=== PATIENT | male | born 1940 | race Caucasian/White ===

== ENCOUNTER 2023-08-18 06:26 | Inpatient (IN) | payer MEDICARE ==
[~2023-08-18] VITALS: Ht 182.9 cm; Wt 107.4 kg
[2023-08-18] MEDS ORDERED: ATOR20TA PO (06:57)
[2023-08-18] MEDS ORDERED: LOSA-420 PO (06:58)
[2023-08-18 07:28] LABS: BILIRUBIN,URINE NEGATIVE (Neg); CLARITY,URINE CLEAR (Clear); COLOR,URINE YELLOW (Yellow); GLUCOSE, URINE >=1000 mg/dl (Neg); KETONES,URINE 40 mg/dl (Neg); LEUKOCYTE ESTERASE ,URINE NEGATIVE (Neg); NITRITES, URINE NEGATIVE (Neg); OCCULT BLOOD,URINE TRACE-INTACT (Neg); PH,URINE 5.5 (4.8-8.0); PROTEIN,URINE NEGATIVE (Neg); UROBILINOGEN,URINE 0.2 E.U/dL (0.2-1.0)
[2023-08-18 07:31] LABS: BASOPHILS # (AUTO) 0.1 X10'3 (0-0.2); BASOPHILS % (AUTO) 0.2 % (0-1); EOSINOPHILS % (AUTO) 0 % (0-6); HEMATOCRIT 52.6 % (42.0-52.0); HEMOGLOBIN 17.2 g/dl (14.0-17.9); LYMPHOCYTES # (AUTO) 1.5 X10'3 (1.1-4.8); LYMPHOCYTES % (AUTO) 6.5 % (21-51); MEAN CORPUSCULAR HEMOGLOBIN 30.4 PG (27.0-31.0); MEAN CORPUSCULAR HGB CONC 32.8 g/dL (33.0-36.5); MEAN CORPUSCULAR VOLUME 92.7 FL (78-98); MEAN PLATELET VOLUME 8.4 FL (7.4-10.4); MONOCYTES % (AUTO) 4.5 % (2-12); NEUTROPHILS # (AUTO) 20.6 X10'3 (1.8-7.7); NEUTROPHILS % (AUTO) 88.8 % (42-75); PLATELET COUNT 232 X10'3 (140-440); RED BLOOD COUNT 5.67 X10'6 (4.70-6.10); RED CELL DISTRIBUTION WIDTH 15.9 % (11.5-14.5); WHITE BLOOD COUNT 23.2 X10'3 (4.5-11.0)
[2023-08-18 07:43] LABS: UA COLLECTION TYPE CLN CATCH MIDSTREAM
[2023-08-18 07:44] LABS: BACTERIA,URINE NONE SEEN /HPF (Neg); MUCUS STRANDS NONE SEEN /LPF (Neg); RBC,URINE 0-2 /HPF (0-2); SQUAMOUS EPITHELIAL CELL,UR NONE SEEN /LPF (FEW); WBC,URINE NONE SEEN /HPF (0-4)
[2023-08-18 07:47] LABS: ALANINE AMINOTRANSFERASE 19 U/L (12-78); ALBUMIN 3.8 G/DL (3.4-5.0); ALBUMIN/GLOBULIN RATIO 0.9 (1.1-1.5); ALKALINE PHOSPHATASE 93 IU/L (46-116); ANION GAP 14 (8-16); ASPARTATE AMINO TRANSFERASE 19 U/L (10-37); BLOOD UREA NITROGEN 30 MG/DL (7-18); BUN/CREATININE RATIO 19.9 (10.0-20.0); CALCIUM 9.6 MG/DL (8.5-10.1); CHLORIDE 101 MMOL/L (99-107); CREATININE 1.51 MG/DL (0.60-1.10); GLUCOSE 136 MG/DL (70-104); POTASSIUM 3.7 MMOL/L (3.5-5.1); SODIUM 138 MMOL/L (135-145); TOTAL CARBON DIOXIDE 22.7 MMOL/L (24-32); eCRCL 42 ML/MIN; eGFR 45 ML/MIN
[2023-08-18] MEDS: normal saline 1000ML IV soln IVB ONE (07:54)
[2023-08-18] MEDS: normal saline 1000ML IV soln IV ONE (07:55)
[2023-08-18 08:16] LABS: LIPASE > 375 U/L (16-77)
[2023-08-18] MEDS: piperacillin/tazo 3.375gm/50ml 50 ML IV ONE (08:30)
[2023-08-18] MEDS: CefTRIAXone 2gm/D5W 50ml BAG 50 ML IV ONE (08:30)
[2023-08-18] MEDS ORDERED: magnesium 4gm in 100ml NS 100 ML IV PRN (09:05)
[2023-08-18] MEDS ORDERED: HYDROcodone/acetaminophen 5mg/325mg tablet PO PRN (09:05)
[2023-08-18] MEDS ORDERED: ondansetron/PF 4mg/2ml inj IV PRN (09:05)
[2023-08-18] MEDS ORDERED: potassium Cl 40MEQ/1/2NS 520ml 520 ML IV PRN (09:05)
[2023-08-18] MEDS ORDERED: acetaminophen 325mg tablet PO PRN ×2 (09:05)
[2023-08-18] MEDS ORDERED: morphine 2 MG/ML inj. syringe IV PRN ×2 (09:05)
[2023-08-18] MEDS ORDERED: potassium Cl 20 mEq SR tablet PO PRN (09:05)
[2023-08-18] MEDS ORDERED: magnesium Cl slow-release 64mg tablet PO PRN (09:05)
[2023-08-18] MEDS ORDERED: magnesium 2GM in 50ml NS 50 ML IV PRN (09:05)
[2023-08-18 09:16] LABS: APTT 33 SECONDS (22-32); INR 1.1 INR; PROTHROMBIN TIME 11.5 SECONDS (9.0-12.0)
[2023-08-18] MEDS: normal saline 1000ml 1,000 ML IV ONE (09:23)
[2023-08-18] MEDS: metroNIDAZOLE-Flagyl 500mg/NS 100 ML IV SCH (09:23)
[2023-08-18 11:30] VITALS: BP 135/81; PULSE 93; RESP 20; TEMP 97.3; O2SAT 94
[2023-08-18] MEDS: HYDROcodone/acetaminophen 10/325mg tab PO PRN (11:30)
[2023-08-18] MEDS ORDERED: SEMA1PEN3 (11:52)
[2023-08-18] MEDS ORDERED: ALLO100T (11:52)
[2023-08-18] MEDS ORDERED: DAPA1TAB3 PO (11:52)
[2023-08-18] MEDS ORDERED: PIOG45TA65 PO (11:52)
[2023-08-18] MEDS ORDERED: PREG75CA76 PO (11:52)
[2023-08-18] MEDS ORDERED: AMA1T PO (11:52)
[2023-08-18 12:00] VITALS: RESP 16; O2SAT 95
[2023-08-18] MEDS: ciprofloxacin lact 400MG/200ML 200 ML IV SCH (12:37)
[2023-08-18] MEDS ORDERED: haloperidol lactate 5mg/ml inj IM PRN (14:20)
[2023-08-18] MEDS ORDERED: dextrose 50%-water 50ml dispensing syringe IV PRN ×2 (14:20)
[2023-08-18] MEDS ORDERED: haloperidol 5mg tablet PO PRN (14:20)
[2023-08-18] MEDS ORDERED: LORazepam 2 mg/ml vial IV PRN (14:20)
[2023-08-18] MEDS ORDERED: DEXTROSE 15 GM of carb/4 tabs (each vial/BOTTLE has 4 tablets) PO PRN ×2 (14:20)
[2023-08-18] MEDS ORDERED: glucagon, human recombinant 1mg kit SUBCUT PRN (14:20)
[2023-08-18 14:35] LABS: HEMOGLOBIN A1C 6.5 % (4.5-6.2)
[2023-08-18] MEDS: INSULIN LISPRO 100 UNIT/ML INSULN.PEN MULTI-DOSE SQ SCH (17:00)
[2023-08-18 18:00] VITALS: BP 127/63; PULSE 95; RESP 18; TEMP 97.2; O2SAT 93
[2023-08-18] MEDS: pantoprazole 40mg Tablet.DR PO SCH (19:48)
[2023-08-18] MEDS: heparin, porcine 5000 units/ml vial SQ SCH (19:48)
[2023-08-18] MEDS: normal saline 1000ml 1,000 ML IV SCH (20:54)
[2023-08-18 22:00] VITALS: BP 107/60; PULSE 101; RESP 18; TEMP 97.9; O2SAT 91
[2023-08-19 06:04] LABS: BASOPHILS % (AUTO) 0.2 % (0-1); EOSINOPHILS % (AUTO) 0 % (0-6); HEMATOCRIT 49.1 % (42.0-52.0); HEMOGLOBIN 16.1 g/dl (14.0-17.9); LYMPHOCYTES % (AUTO) 4.4 % (21-51); MEAN CORPUSCULAR HEMOGLOBIN 30.5 PG (27.0-31.0); MEAN CORPUSCULAR HGB CONC 32.7 g/dL (33.0-36.5); MEAN CORPUSCULAR VOLUME 93.1 FL (78-98); MEAN PLATELET VOLUME 8.8 FL (7.4-10.4); MONOCYTES # (AUTO) 1.4 X10'3 (0-0.9); MONOCYTES % (AUTO) 6.5 % (2-12); NEUTROPHILS # (AUTO) 19.7 X10'3 (1.8-7.7); NEUTROPHILS % (AUTO) 88.9 % (42-75); PLATELET COUNT 183 X10'3 (140-440); RED BLOOD COUNT 5.27 X10'6 (4.70-6.10); WHITE BLOOD COUNT 22.1 X10'3 (4.5-11.0)
[2023-08-19 06:18] LABS: ALANINE AMINOTRANSFERASE 12 U/L (12-78); ALBUMIN 2.7 G/DL (3.4-5.0); ALBUMIN/GLOBULIN RATIO 0.7 (1.1-1.5); ALKALINE PHOSPHATASE 71 IU/L (46-116); ANION GAP 15 (8-16); ASPARTATE AMINO TRANSFERASE 22 U/L (10-37); BILIRUBIN,TOTAL 1.3 MG/DL (0.1-1.0); BLOOD UREA NITROGEN 28 MG/DL (7-18); BUN/CREATININE RATIO 20.9 (10.0-20.0); CHLORIDE 102 MMOL/L (99-107); CREATININE 1.34 MG/DL (0.60-1.10); GLUCOSE 133 MG/DL (70-104); LIPASE 69 U/L (16-77); POTASSIUM 3.4 MMOL/L (3.5-5.1); SODIUM 139 MMOL/L (135-145); TOTAL CARBON DIOXIDE 22.3 MMOL/L (24-32); TOTAL PROTEIN 6.7 G/DL (6.4-8.2); eCRCL 47 ML/MIN; eGFR 51 ML/MIN
[2023-08-19 08:00] VITALS: RESP 18; O2SAT 98
[2023-08-19] MEDS: multivitamins, therapeutics tablet PO SCH (08:39)
[2023-08-19 12:34] VITALS: BP 129/54; PULSE 88; RESP 18; TEMP 97.9; O2SAT 94
[2023-08-19 16:43] VITALS: BP 149/60; PULSE 84; RESP 18; TEMP 97.8; O2SAT 98
[2023-08-19 18:00] VITALS: BP 133/69; PULSE 94; RESP 18; TEMP 97.6; O2SAT 96
[2023-08-19] MEDS: LORazepam 1 MG tablet PO PRN (20:35)
[2023-08-19] MEDS: losartan 50mg tablet PO SCH (20:43)
[2023-08-19 22:00] VITALS: BP 127/55; PULSE 94; RESP 19; TEMP 98.4; O2SAT 97
[2023-08-20 06:06] VITALS: BP 169/94; PULSE 57; RESP 18; TEMP 96.8; O2SAT 96
[2023-08-20 06:28] LABS: BASOPHILS % (AUTO) 0.2 % (0-1); EOSINOPHILS % (AUTO) 0.1 % (0-6); HEMATOCRIT 44.7 % (42.0-52.0); HEMOGLOBIN 14.8 g/dl (14.0-17.9); LYMPHOCYTES # (AUTO) 0.6 X10'3 (1.1-4.8); LYMPHOCYTES % (AUTO) 3.2 % (21-51); MEAN CORPUSCULAR HEMOGLOBIN 30.7 PG (27.0-31.0); MEAN CORPUSCULAR HGB CONC 33.1 g/dL (33.0-36.5); MEAN CORPUSCULAR VOLUME 92.7 FL (78-98); MEAN PLATELET VOLUME 8.8 FL (7.4-10.4); MONOCYTES # (AUTO) 1.3 X10'3 (0-0.9); MONOCYTES % (AUTO) 7.4 % (2-12); NEUTROPHILS # (AUTO) 16.1 X10'3 (1.8-7.7); NEUTROPHILS % (AUTO) 89.1 % (42-75); PLATELET COUNT 176 X10'3 (140-440); RED BLOOD COUNT 4.82 X10'6 (4.70-6.10); RED CELL DISTRIBUTION WIDTH 16.1 % (11.5-14.5)
[2023-08-20 06:52] LABS: ALANINE AMINOTRANSFERASE 17 U/L (12-78); ALBUMIN 2.3 G/DL (3.4-5.0); ALBUMIN/GLOBULIN RATIO 0.6 (1.1-1.5); ALKALINE PHOSPHATASE 83 IU/L (46-116); ANION GAP 12 (8-16); ASPARTATE AMINO TRANSFERASE 23 U/L (10-37); BILIRUBIN,TOTAL 2.1 MG/DL (0.1-1.0); BLOOD UREA NITROGEN 23 MG/DL (7-18); BUN/CREATININE RATIO 18.9 (10.0-20.0); CALCIUM 7.1 MG/DL (8.5-10.1); CHLORIDE 101 MMOL/L (99-107); CREATININE 1.22 MG/DL (0.60-1.10); GLUCOSE 139 MG/DL (70-104); LIPASE 25 U/L (16-77); POTASSIUM 3.1 MMOL/L (3.5-5.1); SODIUM 135 MMOL/L (135-145); TOTAL CARBON DIOXIDE 22.3 MMOL/L (24-32); TOTAL PROTEIN 6.4 G/DL (6.4-8.2); eCRCL 52 ML/MIN; eGFR 57 ML/MIN
[2023-08-20 07:06] VITALS: RESP 16; O2SAT 96
[2023-08-20] MEDS: atorvastatin 20mg tablet PO SCH (09:03)
[2023-08-20 10:51] VITALS: BP 129/60; PULSE 99; RESP 23; TEMP 98.1; O2SAT 91
[2023-08-20] MEDS: potassium Cl 20 mEq SR tablet PO PRN (12:24)
[2023-08-20 18:00] VITALS: BP 141/63; PULSE 101; RESP 18; TEMP 98.2; O2SAT 95
[2023-08-20 20:00] VITALS: RESP 18; O2SAT 95
[2023-08-20 22:00] VITALS: BP 140/73; PULSE 102; RESP 20; TEMP 99.1; O2SAT 94
[2023-08-21 06:40] VITALS: BP 124/53; PULSE 88; RESP 19; TEMP 98.2; O2SAT 92
[2023-08-21 07:30] VITALS: RESP 19; O2SAT 92
[2023-08-21 08:09] LABS: BASOPHILS % (AUTO) 0.1 % (0-1); EOSINOPHILS # (AUTO) 0.1 X10'3 (0-0.9); EOSINOPHILS % (AUTO) 0.8 % (0-6); HEMATOCRIT 41.9 % (42.0-52.0); HEMOGLOBIN 13.8 g/dl (14.0-17.9); LYMPHOCYTES # (AUTO) 0.6 X10'3 (1.1-4.8); LYMPHOCYTES % (AUTO) 3.8 % (21-51); MEAN CORPUSCULAR HEMOGLOBIN 30.5 PG (27.0-31.0); MEAN CORPUSCULAR HGB CONC 32.8 g/dL (33.0-36.5); MEAN CORPUSCULAR VOLUME 92.8 FL (78-98); MEAN PLATELET VOLUME 8.8 FL (7.4-10.4); MONOCYTES # (AUTO) 1.2 X10'3 (0-0.9); MONOCYTES % (AUTO) 7.8 % (2-12); NEUTROPHILS % (AUTO) 87.5 % (42-75); PLATELET COUNT 180 X10'3 (140-440); RED BLOOD COUNT 4.52 X10'6 (4.70-6.10); RED CELL DISTRIBUTION WIDTH 16.2 % (11.5-14.5); WHITE BLOOD COUNT 14.8 X10'3 (4.5-11.0)
[2023-08-21 08:39] LABS: ALANINE AMINOTRANSFERASE 20 U/L (12-78); ALBUMIN 2.1 G/DL (3.4-5.0); ALBUMIN/GLOBULIN RATIO 0.6 (1.1-1.5); ALKALINE PHOSPHATASE 106 IU/L (46-116); ANION GAP 8 (8-16); ASPARTATE AMINO TRANSFERASE 26 U/L (10-37); BLOOD UREA NITROGEN 19 MG/DL (7-18); BUN/CREATININE RATIO 16.7 (10.0-20.0); CALCIUM 6.9 MG/DL (8.5-10.1); CHLORIDE 105 MMOL/L (99-107); CREATININE 1.14 MG/DL (0.60-1.10); GLUCOSE 162 MG/DL (70-104); POTASSIUM 3.1 MMOL/L (3.5-5.1); SODIUM 135 MMOL/L (135-145); TOTAL CARBON DIOXIDE 21.8 MMOL/L (24-32); TOTAL PROTEIN 5.9 G/DL (6.4-8.2); eCRCL 56 ML/MIN; eGFR 62 ML/MIN
[2023-08-21] MEDS ORDERED: magnesium Cl slow-release 64mg tablet PO PRN (10:20)
[2023-08-21] MEDS ORDERED: magnesium 2GM in 50ml NS 50 ML IV PRN (10:20)
[2023-08-21] MEDS ORDERED: potassium Cl 20 mEq SR tablet PO PRN (10:20)
[2023-08-21] MEDS ORDERED: magnesium 4gm in 100ml NS 100 ML IV PRN (10:20)
[2023-08-21] MEDS ORDERED: potassium Cl 40MEQ/1/2NS 520ml 520 ML IV PRN (10:20)
[2023-08-21] MEDS: potassium Cl 20 mEq SR tablet PO PRN ×2 (10:43→14:15)
[2023-08-21 11:00] VITALS: BP 112/50; PULSE 102; RESP 18; TEMP 98.3; O2SAT 94
[2023-08-21 11:52] LABS: MAGNESIUM 1.7 MG/DL (1.5-2.4)
[2023-08-21] MEDS ORDERED: LIDOcaine 5% patch TP SCH (14:35)
[2023-08-21 18:00] VITALS: BP 123/69; PULSE 89; RESP 17; TEMP 98.4; O2SAT 96
[2023-08-21 20:00] VITALS: RESP 17; O2SAT 96
[2023-08-21 22:00] VITALS: BP 141/80; PULSE 121; RESP 17; TEMP 97.2; O2SAT 95
[2023-08-22] VITALS (9 sets, daily range): BP systolic 121–146; BP diastolic 55–73; PULSE 95–101; RESP 16–20; TEMP 97.4–98.4; O2SAT 91–96
[2023-08-22] MEDS: thiamine 100mg tablet PO SCH (07:17)
[2023-08-22] MEDS: K and/or MAG REPLACEMENT MC SCH (08:00)
[2023-08-22 08:34] LABS: BASOPHILS % (AUTO) 0.1 % (0-1); EOSINOPHILS # (AUTO) 0.3 X10'3 (0-0.9); EOSINOPHILS % (AUTO) 1.6 % (0-6); HEMATOCRIT 42.6 % (42.0-52.0); LYMPHOCYTES # (AUTO) 0.6 X10'3 (1.1-4.8); LYMPHOCYTES % (AUTO) 4.2 % (21-51); MEAN CORPUSCULAR HEMOGLOBIN 30.1 PG (27.0-31.0); MEAN CORPUSCULAR HGB CONC 32.7 g/dL (33.0-36.5); MEAN CORPUSCULAR VOLUME 92.1 FL (78-98); MEAN PLATELET VOLUME 8.5 FL (7.4-10.4); MONOCYTES # (AUTO) 1.1 X10'3 (0-0.9); NEUTROPHILS # (AUTO) 13.6 X10'3 (1.8-7.7); NEUTROPHILS % (AUTO) 87.1 % (42-75); PLATELET COUNT 214 X10'3 (140-440); RED BLOOD COUNT 4.63 X10'6 (4.70-6.10); RED CELL DISTRIBUTION WIDTH 16.1 % (11.5-14.5); WHITE BLOOD COUNT 15.6 X10'3 (4.5-11.0)
[2023-08-22 09:01] LABS: ALANINE AMINOTRANSFERASE 27 U/L (12-78); ALBUMIN 2.2 G/DL (3.4-5.0); ALKALINE PHOSPHATASE 159 IU/L (46-116); ANION GAP 9 (8-16); ASPARTATE AMINO TRANSFERASE 38 U/L (10-37); BILIRUBIN,TOTAL 4.6 MG/DL (0.1-1.0); BLOOD UREA NITROGEN 17 MG/DL (7-18); CALCIUM 7.1 MG/DL (8.5-10.1); CHLORIDE 104 MMOL/L (99-107); CREATININE 1.13 MG/DL (0.60-1.10); GLUCOSE 178 MG/DL (70-104); LIPASE 64 U/L (16-77); MAGNESIUM 1.7 MG/DL (1.5-2.4); POTASSIUM 3.1 MMOL/L (3.5-5.1); SODIUM 135 MMOL/L (135-145); TOTAL CARBON DIOXIDE 21.8 MMOL/L (24-32); eCRCL 56 ML/MIN; eGFR 62 ML/MIN
[2023-08-22 09:14] LABS: ALBUMIN/GLOBULIN RATIO 0.6 (1.1-1.5); TOTAL PROTEIN 6.1 G/DL (6.4-8.2)
[2023-08-22] MEDS ORDERED: Potassium Cl inj 20 MEQ in normal saline 1000ml 990 ML IV SCH (11:55)
[2023-08-22] MEDS: potassium Cl 20mEq in NS 1,000 ML IV SCH (12:23)
[2023-08-22 13:38] LABS: PRO BRAIN NATRIURETIC PEPTIDE 1137 PG/ML (0-450)
[2023-08-22] MEDS ORDERED: iohexol 300mg/ml 100ml inj. ONE (13:58)
[2023-08-22] MEDS: albuterol 2.5 MG/3 ML nebule NEB SCH (15:16)
[2023-08-22] MEDS: diazepam inj 5 MG/ML inj. IV ONE (16:28)
[2023-08-22 17:09] LABS: HDL CHOLESTEROL 15 MG/DL (35-60); LDL CHOLESTEROL 34 MG/DL (50-100)
[2023-08-22 17:10] LABS: CHOL/HDL RATIO 5.9 (0.00-4.99); CHOLESTEROL 88 MG/DL (0-200); TRIGLYCERIDES 178 MG/DL (20-135)
[2023-08-22] MEDS: Melatonin 3mg tablet PO PRN (21:03)
[2023-08-23] VITALS (17 sets, daily range): BP systolic 108–145; BP diastolic 52–79; PULSE 83–109; RESP 16–20; TEMP 97.6–98.2; O2SAT 93–98
[2023-08-23 07:42] LABS: BASOPHILS % (AUTO) 0.2 % (0-1); EOSINOPHILS # (AUTO) 0.2 X10'3 (0-0.9); EOSINOPHILS % (AUTO) 1.5 % (0-6); HEMATOCRIT 41.3 % (42.0-52.0); HEMOGLOBIN 13.7 g/dl (14.0-17.9); LYMPHOCYTES # (AUTO) 0.8 X10'3 (1.1-4.8); LYMPHOCYTES % (AUTO) 5.2 % (21-51); MEAN CORPUSCULAR HEMOGLOBIN 30.4 PG (27.0-31.0); MEAN CORPUSCULAR HGB CONC 33.1 g/dL (33.0-36.5); MEAN CORPUSCULAR VOLUME 91.8 FL (78-98); MEAN PLATELET VOLUME 8.6 FL (7.4-10.4); MONOCYTES # (AUTO) 1.4 X10'3 (0-0.9); MONOCYTES % (AUTO) 8.8 % (2-12); NEUTROPHILS # (AUTO) 13.2 X10'3 (1.8-7.7); NEUTROPHILS % (AUTO) 84.3 % (42-75); PLATELET COUNT 259 X10'3 (140-440); RED BLOOD COUNT 4.49 X10'6 (4.70-6.10); RED CELL DISTRIBUTION WIDTH 16.3 % (11.5-14.5); WHITE BLOOD COUNT 15.6 X10'3 (4.5-11.0)
[2023-08-23] MEDS: folic acid 1mg tablet PO SCH (08:00)
[2023-08-23 08:14] LABS: ALANINE AMINOTRANSFERASE 69 U/L (12-78); ALBUMIN 2.1 G/DL (3.4-5.0); ALBUMIN/GLOBULIN RATIO 0.5 (1.1-1.5); ALKALINE PHOSPHATASE 174 IU/L (46-116); ANION GAP 10 (8-16); ASPARTATE AMINO TRANSFERASE 102 U/L (10-37); BILIRUBIN,TOTAL 4.1 MG/DL (0.1-1.0); BLOOD UREA NITROGEN 17 MG/DL (7-18); BUN/CREATININE RATIO 13.6 (10.0-20.0); CALCIUM 7.2 MG/DL (8.5-10.1); CHLORIDE 107 MMOL/L (99-107); CHOL/HDL RATIO 6.3 (0.00-4.99); CHOLESTEROL 88 MG/DL (0-200); CREATININE 1.25 MG/DL (0.60-1.10); GLUCOSE 204 MG/DL (70-104); HDL CHOLESTEROL 14 MG/DL (35-60); LDL CHOLESTEROL 36 MG/DL (50-100); MAGNESIUM 1.9 MG/DL (1.5-2.4); POTASSIUM 3.3 MMOL/L (3.5-5.1); SODIUM 139 MMOL/L (135-145); TOTAL CARBON DIOXIDE 21.8 MMOL/L (24-32); TOTAL PROTEIN 6.1 G/DL (6.4-8.2); TRIGLYCERIDES 162 MG/DL (20-135); eCRCL 51 ML/MIN; eGFR 55 ML/MIN
[2023-08-23 08:57] LABS: LIPASE 65 U/L (16-77)
[2023-08-23 09:40] LABS: PLATELET ESTIMATE NORMAL; TOTAL CELLS COUNTED 100; TOXIC GRANULATION 2+
[2023-08-23 09:41] LABS: ANISOCYTOSIS 1+
[2023-08-23] MEDS: albuterol 2.5 MG/3 ML nebule NEB SCH (12:30)
[2023-08-23] MEDS: lactose-reduced food (Ensure Enlive) - 237ml bottle PO SCH (13:00)
[2023-08-24] VITALS (8 sets, daily range): BP systolic 113–123; BP diastolic 65; PULSE 75–104; RESP 16–18; TEMP 97.1; O2SAT 92–95
[2023-08-24] MEDS: psyllium seed 5.8 gm packet (sugar-free) PO PRN (07:56)
[2023-08-24 09:27] LABS: BASOPHILS % (AUTO) 0.3 % (0-1); EOSINOPHILS # (AUTO) 0.3 X10'3 (0-0.9); EOSINOPHILS % (AUTO) 1.8 % (0-6); HEMATOCRIT 39.2 % (42.0-52.0); HEMOGLOBIN 12.9 g/dl (14.0-17.9); LYMPHOCYTES # (AUTO) 0.7 X10'3 (1.1-4.8); LYMPHOCYTES % (AUTO) 4.8 % (21-51); MEAN CORPUSCULAR HEMOGLOBIN 30.4 PG (27.0-31.0); MEAN CORPUSCULAR VOLUME 92.3 FL (78-98); MEAN PLATELET VOLUME 8.7 FL (7.4-10.4); MONOCYTES # (AUTO) 1.6 X10'3 (0-0.9); MONOCYTES % (AUTO) 10.8 % (2-12); NEUTROPHILS # (AUTO) 12.1 X10'3 (1.8-7.7); NEUTROPHILS % (AUTO) 82.3 % (42-75); PLATELET COUNT 254 X10'3 (140-440); RED BLOOD COUNT 4.25 X10'6 (4.70-6.10); RED CELL DISTRIBUTION WIDTH 16.6 % (11.5-14.5); WHITE BLOOD COUNT 14.7 X10'3 (4.5-11.0)
[2023-08-24 09:51] LABS: ALANINE AMINOTRANSFERASE 74 U/L (12-78); ALBUMIN 1.9 G/DL (3.4-5.0); ALBUMIN/GLOBULIN RATIO 0.5 (1.1-1.5); ALKALINE PHOSPHATASE 183 IU/L (46-116); ANION GAP 9 (8-16); ASPARTATE AMINO TRANSFERASE 83 U/L (10-37); BILIRUBIN,TOTAL 3.5 MG/DL (0.1-1.0); BLOOD UREA NITROGEN 17 MG/DL (7-18); BUN/CREATININE RATIO 14.9 (10.0-20.0); CALCIUM 7.1 MG/DL (8.5-10.1); CHLORIDE 108 MMOL/L (99-107); CREATININE 1.14 MG/DL (0.60-1.10); GLUCOSE 276 MG/DL (70-104); POTASSIUM 3.5 MMOL/L (3.5-5.1); SODIUM 137 MMOL/L (135-145); TOTAL CARBON DIOXIDE 19.7 MMOL/L (24-32); TOTAL PROTEIN 5.6 G/DL (6.4-8.2); eCRCL 56 ML/MIN; eGFR 62 ML/MIN
[2023-08-24 11:33] LABS: ANISOCYTOSIS 1+; BURR CELLS 1+; PLATELET ESTIMATE NORMAL; TOTAL CELLS COUNTED 100; TOXIC GRANULATION 1+
[2023-08-24 11:34] LABS: TARGET CELLS FEW
[2023-08-24] MEDS ORDERED: LOSA50TA64 PO (12:20)
[2023-08-24] MEDS ORDERED: FOLI1TAB27 PO (12:20)
[2023-08-24] MEDS ORDERED: thiamine tablet PO (12:20)
[2023-08-24] MEDS ORDERED: METF-1203 PO (14:29)
== END 2023-08-24 13:50 | disposition home or self-care (01) | DRG 871 ==
LOC: ER 06:26 → ED HOLD 09:08 → ORTHO 4S 10:55
PROVIDERS: ADMIT Internal Medicine; ATTEND Internal Medicine
DX: A41.9 Sepsis, unspecified organism (principal); K85.20 Alcohol induced acute pancreatitis without necrosis or infection; N17.9 Acute kidney failure, unspecified; I12.9 Hypertensive chronic kidney disease with stage 1 through stage 4 chronic kidney disease, or unspecified chronic kidney disease; E11.22 Type 2 diabetes mellitus with diabetic chronic kidney disease; E11.40 Type 2 diabetes mellitus with diabetic neuropathy, unspecified; E78.00 Pure hypercholesterolemia, unspecified; N18.30 Chronic kidney disease, stage 3 unspecified; E87.6 Hypokalemia; K70.10 Alcoholic hepatitis without ascites; K59.09 Other constipation; K29.80 Duodenitis without bleeding; F10.10 Alcohol abuse, uncomplicated; Y90.9 Presence of alcohol in blood, level not specified; Z79.84 Long term (current) use of oral hypoglycemic drugs; Z87.891 Personal history of nicotine dependence; Z79.899 Other long term (current) drug therapy
CPT/HCPCS: 36415; 71260; 74018; 74176; 74177; 74181; 76705; 80053; 80061; 80320; 81001; 82948; 83036; 83605; 83690; 83735; 83880; 84145; 84484; 85007; 85025; 85610; 85651; 85730; 87040; 87081; 87088; 93005; 93306; 94640; 94760; 96365; 96367; 99285; A6258; A6402; G0378; J0696; J0744; J1644; J1815; J2543; J3360; J3480; J3490; J7030; Q9967